=== PATIENT | female | born 1965 | race Caucasian/White ===

== ENCOUNTER 2017-08-08 09:07 | Emergency (ER) | payer MEDICARE, OTHER ==
[~2017-08-08] VITALS: Ht 172.7 cm; Wt 98.0 kg
[2017-08-08 09:11] VITALS: BP 198/96; PULSE 96; RESP 16; TEMP 98.5; O2SAT 99
--- NOTE | 2017-08-08 10:08 | PD ---
HPI Chief Complaint: Musculoskeletal Complaint Time Seen by Provider: 09:55 Travel History International Travel<30 days: No Contact w/Intl Traveler<30days: No Traveled to known affect area: No History of Present Illness HPI 52-year-old female with history of RA who recently relocated to the [facility] here with joint pain. She has not received her Enbrel since July for management of her RA. She is awaiting an appointment with a new business project manager. She does not have a primary doctor. She denies fever or chills. This is similar to her previous flares. she has pain in her left wrist , bilateral knees. pain is constant. no aggravating or alleviating factors. PFSH Past Medical History Arthritis: Yes (RA) Hypertension: Yes Tetanus Vaccination: Unknown Influenza Vaccination: No ?: Not Tubal Ligation: Yes Past Surgical History Appendectomy: Yes Social History Alcohol Use: No Tobacco Use: Yes (08/02 PPD) Substance Use: No Allergies-Medications (Allergen,Severity, Reaction): Coded Allergies: No Known Allergies (Unverified , 08/08/17) Reported Meds & Prescriptions Reported Meds & Active Scripts Active Ultram (Tramadol HCl) 50 Mg Tab 50 Mg PO Q6H PRN Prednisone 20 Mg Tab 40 Mg PO DAILY Take 40 mg (2 tablets) daily for 5 days Review of Systems Except as stated in HPI: all other systems reviewed are Neg General / Constitutional: No: Fever Eyes: No: Visual changes HENT: No: Headaches Cardiovascular: No: Chest Pain or Discomfort Respiratory: No: Shortness of Breath Gastrointestinal: No: Abdominal Pain Genitourinary: No: Dysuria Physical Exam Narrative GENERAL: alert female. nontoxic appearing SKIN: Warm and dry. no rash HEAD: Normocephalic. EYES: No scleral icterus. No injection or drainage. NECK: Supple, trachea midline. No JVD or lymphadenopathy. CARDIOVASCULAR: Regular rate and rhythm without murmurs, gallops, or rubs. RESPIRATORY: Breath sounds equal bilaterally. No accessory muscle use. GASTROINTESTINAL: Abdomen soft, non-tender, nondistended. MUSCULOSKELETAL: No cyanosis, or edema. tenderness & mild swelling over the dorsal aspect of the left wrist, bilateral anterior knees. BACK: Nontender without obvious deformity. No CVA tenderness. Data Data Last Documented VS Vital Signs Date Time Temp Pulse Resp B/P (MAP) Pulse Ox O2 Delivery O2 Flow Rate FiO2 08/08/17 09:11 98.5 96 16 198/96 (130) 99 Orders Orders Dexamethasone Inj (Decadron Inj) (08/08/17 10:15) Ketorolac Inj (Toradol Inj) (08/08/17 10:15) Ed Discharge Order (08/08/17 10:18) MDM Medical Decision Making Medical Screen Exam Complete: Yes Emergency Medical Condition: Yes Differential Diagnosis Rheumatoid arthritis, osteoarthritis, psoriatic arthritis Narrative Course 52-year-old female with history of RA who recently relocated to the [facility] here with joint pain. She has not received her Enbrel since July for management of her RA. She is awaiting an appointment with a new business project manager. She does not have a primary doctor. She denies fever or chills. This is similar to her previous flares. Patient was given a shot of Decadron and Toradol which improved her symptoms. She'll be referred to local business project manager and prescribed steroids and Ultram. Diagnosis Primary Impression: Rheumatoid arthritis Qualified Codes: M06.9 - Rheumatoid arthritis, unspecified Referrals: Tractor Trailer Operator ALLERGY, ASTHMA, ARTHRITIS & [place] ARTHRITIS & ALLERGY IN Tractor Trailer Operator Additional Instructions: Steroids as prescribed. Ultram as needed for pain. Call to make a follow-up an appointment with one of the listed business project manager. Return if he developed new or worsening symptoms. Scripts Tramadol (Ultram) 50 Mg Tab 50 MG PO Q6H Y for PAIN, #15 TAB 0 Refills Prov: Williams Wong MD 08/08/17 Prednisone (Prednisone) 20 Mg Tab 40 MG PO DAILY, #10 TAB 0 Refills Take 40 mg (2 tablets) daily for 5 days Prov: Zara Holley 08/08/17 Disposition: 01 DISCHARGE HOME Condition: Stable Zara Holley Aug 08, 2017 10:08
[2017-08-08] MEDS ORDERED: PRED20 PO (10:10)
[2017-08-08] MEDS ORDERED: TRAM50 PO (10:11)
[2017-08-08] MEDS ORDERED: KETOROLAC TROMETHAMINE 60 MG/2 ML (IM) VIAL IM ONE (10:15)
[2017-08-08] MEDS ORDERED: DEXAMETHASONE SOD PHOS 4 MG/ML VIAL IM ONE (10:15)
== END 2017-08-08 10:34 | disposition home or self-care (01) ==
LOC: PHEFT 09:07
DX: M06.9 Rheumatoid arthritis, unspecified (principal); I10 Essential (primary) hypertension; J45.909 Unspecified asthma, uncomplicated; F17.200 Nicotine dependence, unspecified, uncomplicated
CPT/HCPCS: 96372; 99284; J1100; J1885

== ENCOUNTER 2017-10-12 11:59 | Inpatient (IN) | payer MEDICARE, OTHER ==
[~2017-10-12] VITALS: Ht 172.7 cm; Wt 96.4 kg
[2017-10-12] VITALS (10 sets, daily range): BP systolic 138–196; BP diastolic 72–106; PULSE 72–79; RESP 16–20; TEMP 97–98.7; O2SAT 92–100
[~2017-10-12 11:59] MED LIST: PRED20 PO; TRAM50 PO
[2017-10-12] MEDS ORDERED: PANTOPRAZOLE INJ 80 MG in SODIUM CHLORIDE 0.9% INJ 100 ML IV SCH (12:13)
[2017-10-12] MEDS ORDERED: SODIUM CHLOR 0.9% 1000 ML INJ 1,000 ML IV SCH (12:13)
[2017-10-12] MEDS ORDERED: PANTOPRAZOLE INJ 80 MG in SODIUM CHLORIDE 0.9% INJ 35 ML IV ONE (12:13)
[2017-10-12] MEDS ORDERED: SODIUM CHLORIDE 0.9% FLUSH 10 ML FLUSH IVF PRN (12:15)
--- NOTE | 2017-10-12 12:27 | PD ---
HPI . Hematemesis Chief Complaint: GI Complaint Time Seen by Provider: 12:10 Travel History International Travel<30 days: No Contact w/Intl Traveler<30days: No Traveled to known affect area: No History of Present Illness HPI Patient presents complaining with a three-day history of hematemesis. She has vomited once each day. She has poor appetite. She has minimal epigastric discomfort. She has not noticed any change in her stools. She has been taking ibuprofen, 800 mg every 6 hours for the last week because of rheumatoid arthritis. She had been maintained on Embrel for her rheumatoid arthritis but has recently moved here and does not have a conservation technician appointment until December. She states that she has seen a primary care provider but that the primary care provider would not prescribe the Embrel. Therefore, she has been taking [id number] NSAIAs for her RA. The patient denies any previous problem with her GI tract. She is complaining with diffuse joint pain. She rates her joint pain at 10/10. PFSH Past Medical History Arthritis: Yes (RA) Hypertension: Yes Tubal Ligation: Yes Past Surgical History Appendectomy: Yes Social History Alcohol Use: No Tobacco Use: Yes (/2 PPD) Substance Use: No Allergies-Medications (Allergen,Severity, Reaction): Coded Allergies: No Known Allergies (Unverified , 10/12/17) Reported Meds & Prescriptions Reported Meds & Active Scripts Active Ultram (Tramadol HCl) 50 Mg Tab 50 Mg PO Q6H PRN Prednisone 20 Mg Tab 40 Mg PO DAILY Take 40 mg (2 tablets) daily for 5 days Review of Systems Except as stated in HPI: all other systems reviewed are Neg Gastrointestinal: Positive: Nausea, Vomiting, Abdominal Pain, Hematemesis, No: Diarrhea, Hematochezia Musculoskeletal: Positive: Arthralgias, Limited ROM Physical Exam Narrative GENERAL: Very anxious. SKIN: warm/dry. Normal color and turgor. HEAD: Normocephalic. Atraumatic. EYES: Pupils equal and round. No scleral icterus. No injection or drainage. ENT: No nasal bleeding or discharge. Mucous membranes pink and moist. NECK: Trachea midline. Full range of motion without pain.. CARDIOVASCULAR: Regular rate and rhythm. RESPIRATORY: No accessory muscle use. Clear to auscultation. Breath sounds equal bilaterally. GASTROINTESTINAL: Abdomen soft. Nontender. Bowel sounds present. Nondistended. RECTAL: Hard brown stool in the rectal vault. MUSCULOSKELETAL: No obvious deformities. NEUROLOGICAL: Awake and alert. No obvious cranial nerve deficits. Motor grossly within normal limits. Normal speech. PSYCHIATRIC: Appropriate mood and affect; insight and judgment normal. Data Data Last Documented VS Vital Signs Date Time Temp Pulse Resp B/P (MAP) Pulse Ox O2 Delivery O2 Flow Rate FiO2 10/12/17 12:06 98.1 79 18 196/106 (136) 100 Orders Orders Basic Metabolic Panel (Bmp) (10/12/17 12:13) Complete Blood Count With Diff (10/12/17 12:13) Prothrombin Time / Inr (Pt) (10/12/17 12:13) Act Partial Throm Time (Ptt) (10/12/17 12:13) Type And Screen (10/12/17 12:13) Ecg Monitoring (10/12/17 12:13) Iv Access Insert/Monitor (10/12/17 12:13) Ng Gastric Tube Insert/Monitor (10/12/17 12:13) Sodium Chlor 0.9% 1000 Ml Inj (Ns 1000 M (10/12/17 12:13) Sodium Chloride 0.9% Flush (Ns Flush) (10/12/17 12:15) Sodium Chloride 0.9... W/Pantoprazole In (10/12/17 12:13) Sodium Chloride 0.9... W/Pantoprazole In (10/12/17 12:13) Lorazepam Inj (Ativan Inj) (10/12/17 12:30) Morphine Inj (Morphine Inj) (10/12/17 12:30) Red Blood Cells (Rbc) (10/12/17 12:45) Blood Product Administration (10/12/17 12:45) Sodium Chlor 0.9% 250 Ml Inj (Ns 250 Ml (10/12/17 12:45) Pantoprazole Inj (Protonix Inj) (10/12/17 13:00) Admit Order (Ed Use Only) (10/12/17 ) Vital Signs (Adult) Q4H (10/12/17 13:42) Diet Npo (10/12/17 Lunch) Activity Oob With Assistance (10/12/17 13:42) Notify Dr: Other (10/12/17 13:42) Labs Laboratory Tests Test 10/12/17 12:24 White Blood Count 6.6 TH/MM3 Red Blood Count 3.52 MIL/MM3 Hemoglobin 6.7 GM/DL Hematocrit 22.4 % Mean Corpuscular Volume 63.6 FL Mean Corpuscular Hemoglobin 18.9 PG Mean Corpuscular Hemoglobin Concent 29.8 % Red Cell Distribution Width 18.3 % Platelet Count 406 TH/MM3 Mean Platelet Volume 8.1 FL Neutrophils (%) (Auto) 69.6 % Lymphocytes (%) (Auto) 16.4 % Monocytes (%) (Auto) 7.8 % Eosinophils (%) (Auto) 3.6 % Basophils (%) (Auto) 2.6 % Neutrophils # (Auto) 4.6 TH/MM3 Lymphocytes # (Auto) 1.1 TH/MM3 Monocytes # (Auto) 0.5 TH/MM3 Eosinophils # (Auto) 0.2 TH/MM3 Basophils # (Auto) 0.2 TH/MM3 CBC Comment AUTO DIFF Differential Comment AUTO DIFF CONFIRMED Target Cells 1+ Prothrombin Time 9.9 SEC Prothromb Time International Ratio 1.0 RATIO Activated Partial Thromboplast Time 24.1 SEC Blood Urea Nitrogen 9 MG/DL Creatinine 0.44 MG/DL Random Glucose 84 MG/DL Calcium Level 8.5 MG/DL Sodium Level 141 MEQ/L Potassium Level 4.0 MEQ/L Chloride Level 107 MEQ/L Carbon Dioxide Level 27.0 MEQ/L Anion Gap 7 MEQ/L Estimat Glomerular Filtration Rate 151 ML/MIN MDM Medical Decision Making Medical Screen Exam Complete: Yes Emergency Medical Condition: Yes Differential Diagnosis Differential diagnosis includes but is not limited to gastritis, peptic ulcer disease, coagulopathy, gastric cancer Narrative Course This patient presents with hematemesis for the last 3 days. She reports one episode daily. She appears hemodynamically stable at this time. The etiology of her hematemesis is likely secondary to gastritis secondary to use of NSAIAs. She will be placed on a Protonix drip. Routine labs are pending including a type and screen. I have asked for an NG tube. This patient is very anxious and is in significant pain related to her are a. Those symptoms are being treated with Ativan and morphine. CBC & BMP Diagram 10/12/17 12:24 Calcium Level 8.5 I have ordered type and cross 4 with 2 units to be given now. She has had very little bloody output from her NG tube. HemaPrompt Point of Care Internal Pos. & Neg. Controls: Passed Fecal Specimen Occult Blood: Positive Diagnosis Primary Impression: Hematemesis Qualified Codes: K92.0 - Hematemesis Additional Impressions: Anemia Qualified Codes: D64.9 - Anemia, unspecified Rheumatoid arthritis Qualified Codes: M06.9 - Rheumatoid arthritis, unspecified Admitting Information Admitting Physician Requests: Admit Condition: Stable Mireille Vargas MD Oct 12, 2017 12:27
[2017-10-12] MEDS ORDERED: MORPHINE SULFATE 4 MG/ML INJ IV ONE (12:30)
[2017-10-12] MEDS ORDERED: LORazepam 2 MG/ML VIAL IV PUSH SCH (12:30)
[2017-10-12 12:41] LABS: AUTOMATED NEUTROPHIL # 4.6 TH/MM3 (1.8-7.7); BASOPHIL # 0.2 TH/MM3 (0-0.2); BASOPHIL % 2.6 % (0.0-2.0); EOSINOPHIL # 0.2 TH/MM3 (0-0.4); EOSINOPHIL % 3.6 % (0.0-4.0); HEMATOCRIT 22.4 % (35.0-46.0); LYMPH % 16.4 % (9.0-44.0); LYMPHOCYTE # 1.1 TH/MM3 (1.0-4.8); MEAN CELL VOLUME 63.6 FL (80.0-100.0); MEAN CORPUSCULAR HEMOGLOBIN 18.9 PG (27.0-34.0); MEAN PLATELET VOLUME 8.1 FL (7.0-11.0); MONO % 7.8 % (0.0-8.0); MONOCYTE # 0.5 TH/MM3 (0-0.9); NEUT % 69.6 % (16.0-70.0); PLATELET COUNT 406 TH/MM3 (150-450); RED BLOOD COUNT 3.52 MIL/MM3 (4.00-5.30); RED CELL DISTRIBUTION WIDTH 18.3 % (11.6-17.2); WHITE BLOOD COUNT 6.6 TH/MM3 (4.0-11.0)
[2017-10-12 12:42] LABS: MEAN CORPUSCULAR HGB CONC 29.8 % (32.0-36.0)
[2017-10-12 12:43] LABS: HEMOGLOBIN 6.7 GM/DL (11.6-15.3)
[2017-10-12] MEDS ORDERED: SODIUM CHLOR 0.9% 250 ML INJ 250 ML IV ONE (12:45)
[2017-10-12 12:46] LABS: CALCIUM 8.5 MG/DL (8.5-10.1)
[2017-10-12 12:50] LABS: CREATININE 0.44 MG/DL (0.50-1.00)
[2017-10-12 13:01] LABS: TARGET CELLS 1+ (NORMAL)
[2017-10-12 13:20] LABS: PROTHROMBIN TIME - PATIENT 9.9 SEC (9.8-11.6)
[2017-10-12] MEDS: PANTOPRAZOLE INJ 80 MG in SODIUM CHLORIDE 0.9% INJ 100 ML IV SCH ×2 (13:40→21:17)
[2017-10-12] MEDS ORDERED: NALOXONE HCL 0.4 MG/ML AMP IV PUSH PRN (14:00)
[2017-10-12] MEDS ORDERED: ONDANSETRON HCL 4 MG/2 ML VIAL IVP PRN (14:00)
[2017-10-12] MEDS ORDERED: MORPHINE SULFATE 2 MG/ML INJ IV PUSH PRN (14:00)
[2017-10-12] MEDS ORDERED: SODIUM CHLORIDE 0.9% FLUSH 10 ML FLUSH IV FLUSH PRN (14:00)
[2017-10-12] MEDS: SODIUM CHLOR 0.9% 1000 ML INJ 1,000 ML IV SCH (14:00)
[2017-10-12] MEDS ORDERED: hydrALAZINE HCL 20 MG/ML VIAL IV PUSH PRN (15:15)
--- NOTE | 2017-10-12 15:16 | HHI.HP ---
[facility] Service [facility] Primary Care Physician Lucas Perales MD Admission Diagnosis GI bleed, anemia, RA Diagnoses: (1) Hematemesis Diagnosis: Principal (2) Anemia due to acute blood loss Diagnosis: Principal Chief Complaint: Vomiting of blood Travel History International Travel<30 Days: No Contact w/Intl Traveler <30 Da: No Traveled to Known Affected Are: No History of Present Illness This is a 52-year-old female with known history of hypertension, rheumatoid arthritis, osteoarthritis who recently moved to this area in August from [place]. And likely she did have a primary medical doctor as well as a technical spec to manage her care on a regular basis. However since she moved here she has been unable to receive her medication that she was taking previously. She was on Enbrel for her rheumatoid arthritis, and has not been able to take it since 07/19/17 because she moved to this area she does not have a technical spec prescribed medication. It was indicated that her previous technical spec will not refill the medication because she has moved to a new area and is in the process of obtaining a new technical spec which she has an appointment for in January. She was successful in getting a primary medical doctor but was only able to get her blood pressure medication refilled. Was not successful in getting the Enbrel prefilled. She has not had the medication she has been taking ibuprofen approximately 800 mg every 6 hours for chronic pain. Patient states that 3 days ago she started having episodes of vomiting of blood. She had 2 episodes 3 days ago of bright red blood with emesis, one episode yesterday, and one episode today. Because she was continued to have bloody vomit with right upper quadrant abdominal pain she came to emergency department for evaluation. Patient had laboratories performed which did show acute anemia with hemoglobin 6.7. NG tube was placed to empty gastric contents to eliminate further vomiting by ER physician. Patient has been started on Protonix. ER physician called hospitalist and recommended admission with GI consultation, blood transfusion. Patient denies any previous episodes of hematemesis. She denies any melena, however occult blood was performed emergency department which was positive. Review of Systems Gastrointestinal: COMPLAINS OF: Abdominal pain, Nausea, Vomiting Musculoskeletal: COMPLAINS OF: Joint pain Except as stated in HPI: all other systems reviewed are Neg Past Family Social History Past Medical History Rheumatoid arthritis Osteoarthritis Hypertension Past Surgical History Cervical ablation tubal ligation tonsillectomy Reported Medications Reported Meds & Active Scripts Active Ultram (Tramadol HCl) 50 Mg Tab 50 Mg PO Q6H PRN Prednisone 20 Mg Tab 40 Mg PO DAILY Take 40 mg (2 tablets) daily for 5 days Allergies: Coded Allergies: No Known Allergies (Unverified , 10/12/17) Family History Reviewed is significant for mother from aortic aneurysm, father from congestive heart failure, brother from cardiomyopathy Social History Patient continues smoke a quarter pack a cigarettes a day since she was 17 years old. Denies any alcohol use. Does use marijuana occasionally Physical Exam Vital Signs Vital Signs Date Time Temp Pulse Resp B/P (MAP) Pulse Ox O2 Delivery O2 Flow Rate FiO2 10/12/17 14:05 10/12/17 13:44 72 16 160/85 (110) 99 Room Air 10/12/17 12:06 98.1 79 18 196/106 (136) 100 Physical Exam GENERAL: Well-developed, well-nourished, in no acute distress. alert and orientated HEENT: Head is normocephalic without any lesions or masses noted. Facial features are symmetric. Eyes: Pupils equal round reactive to light. Extraocular muscles are intact. Conjunctivae were clear. Oropharyngeal: Pharynx without any erythema edema. Tongue is midline without deviation. Buccal mucosa is moist without any masses or lesions. NG tube in place NECK: Supple without any masses. Trachea midline no deviation. No JVD, no bruits are appreciated CARDIAC: Regular rhythm, regular rate. S1/S2 are heard. No murmurs gallops or rubs. LUNGS: Clear to auscultation bilaterally. No wheeze, rhonchi or rales. No use of accessory muscles on inspiration or expiration. ABDOMEN: Soft, mild tenderness noted in the epigastric region. Nondistended. Bowel sounds heard in all 4 quadrants. No organomegaly or masses. Negative rebound, negative guarding EXTREMITIES: No edema, pulses are equal bilaterally. No cyanosis or clubbing NEUROLOGY: Mood and affect appear appropriate. Cranial nerves II through XII grossly intact. Muscle strength 5/5 in upper and lower extremities bilaterally. Deep tendon reflexes are 2+ in upper and lower extremities bilaterally. Laboratory Laboratory Tests Test 10/12/17 12:24 White Blood Count 6.6 Red Blood Count 3.52 Hemoglobin 6.7 Hematocrit 22.4 Mean Corpuscular Volume 63.6 Mean Corpuscular Hemoglobin 18.9 Mean Corpuscular Hemoglobin Concent 29.8 Red Cell Distribution Width 18.3 Platelet Count 406 Mean Platelet Volume 8.1 Neutrophils (%) (Auto) 69.6 Lymphocytes (%) (Auto) 16.4 Monocytes (%) (Auto) 7.8 Eosinophils (%) (Auto) 3.6 Basophils (%) (Auto) 2.6 Neutrophils # (Auto) 4.6 Lymphocytes # (Auto) 1.1 Monocytes # (Auto) 0.5 Eosinophils # (Auto) 0.2 Basophils # (Auto) 0.2 CBC Comment AUTO DIFF Differential Comment AUTO DIFF CONFIRMED Target Cells 1+ Prothrombin Time 9.9 Prothromb Time International Ratio 1.0 Activated Partial Thromboplast Time 24.1 Blood Urea Nitrogen 9 Creatinine 0.44 Random Glucose 84 Calcium Level 8.5 Sodium Level 141 Potassium Level 4.0 Chloride Level 107 Carbon Dioxide Level 27.0 Anion Gap 7 Estimat Glomerular Filtration Rate 151 Result Diagram: 10/12/17 1224 10/12/17 1224 Caprini VTE Risk Assessment Caprini VTE Risk Assessment: Mod/High Risk (score >= 2) VTE Pharm Contraindication: Active bleeding Caprini Risk Assessment Model Point Value = 1 Point Value = 2 Point Value = 3 Point Value = 5 Age 41-60 Minor surgery BMI > 25 kg/m2 Swollen legs Varicose veins or History of unexplained or recurrent spontaneous Oral contraceptives or hormone replacement Sepsis (< 1 month) Serious lung disease, including pneumonia (< 1 month) Abnormal pulmonary function Acute myocardial infarction Congestive heart failure (< 1 month) History of inflammatory bowel disease Medical patient at bed rest Age 61-74 Arthroscopic surgery Major open surgery (> 45 min) Laparoscopic surgery (> 45 min) Malignancy Confined to bed (> 72 hours) Immobilizing plaster cast Central venous access Age >= 75 History of VTE Family history of VTE Factor V Leiden Prothrombin [id number] Lupus anticoagulant Anticardiolipin antibodies Elevated serum homocysteine Heparin-induced thrombocytopenia Other congenital or acquired thrombophilia Stroke (< 1 month) Elective arthroplasty Hip, pelvis, or leg fracture Acute spinal cord injury (< 1 month) Prophylaxis Regimen Total Risk Factor Score Risk Level Prophylaxis Regimen 0-1 Low Early ambulation 2 Moderate Order ONE of the following: *Sequential Compression Device (SCD) *Heparin 5000 units SQ BID 3-4 Higher Order ONE of the following medications: *Heparin 5000 units SQ TID *Enoxaparin/Lovenox 40 mg SQ daily (WT < 150 kg, CrCl > 30 mL/min) *Enoxaparin/Lovenox 30 mg SQ daily (WT < 150 kg, CrCl > 10-29 mL/min) *Enoxaparin/Lovenox 30 mg SQ BID (WT < 150 kg, CrCl > 30 mL/min) AND/OR *Sequential Compression Device (SCD) 5 or more Highest Order ONE of the following medications: *Heparin 5000 units SQ TID (Preferred with Epidurals) *Enoxaparin/Lovenox 40 mg SQ daily (WT < 150 kg, CrCl > 30 mL/min) *Enoxaparin/Lovenox 30 mg SQ daily (WT < 150 kg, CrCl > 10-29 mL/min) *Enoxaparin/Lovenox 30 mg SQ BID (WT < 150 kg, CrCl > 30 mL/min) AND *Sequential Compression Device (SCD) Assessment and Plan Assessment and Plan Hematemesis Patient started on Protonix IV Continue IV fluid Zofran for nausea or vomiting GI consulted for recommendations, patient will require endoscopy We'll keep patient nothing by mouth, NG tube placed by ER physician Anemia of acute blood loss with microcytosis Transfuse 2 units of packed red blood cells Continue monitor H&H every 6 hours Obtain anemia workup with iron studies, ferritin, folic acid, B12, retake count, haptoglobin Hypertension Vasotec, Apresoline as needed Rheumatoid arthritis Continue pain control DVT prevention sequential compression devices Avoid chemical prophylaxis secondary to acute blood GI bleed Physician Certification 2 Midnight Certification Type: Admission for Inpatient Services Order for Inpatient Services The services are ordered in accordance with Medicare regulations or non- Medicare payer requirements, as applicable. In the case of services not specified as inpatient-only, they are appropriately provided as inpatient services in accordance with the 2-midnight benchmark. Estimated LOS (days): 2 days is the estimated time the patient will need to remain in the hospital, assuming treatment plan goals are met and no additional complications. Post-Hospital Plan: Not yet determined Problem Qualifiers (1) Hematemesis: Qualified Codes: K92.0 - Hematemesis Oswald Bhakta Oct 12, 2017 15:16
[2017-10-12] MEDS: ENALAPRILAT 1.25 MG/ML VIAL IV PUSH PRN ×2 (15:51→23:41)
[2017-10-12] MEDS: ONDANSETRON HCL 4 MG/2 ML VIAL IV PUSH PRN (15:52)
[2017-10-12] MEDS: MORPHINE SULFATE 4 MG/ML INJ IV PUSH PRN ×3 (15:52→22:27)
[2017-10-12 16:20] LABS: HEMATOCRIT 22.1 % (35.0-46.0)
[2017-10-12 16:25] LABS: HEMOGLOBIN 6.5 GM/DL (11.6-15.3)
[2017-10-12 16:32] LABS: RETIC # 82.7 MIL/L (20.0-150.0); RETIC % 2.5 % (0.4-3.0)
[2017-10-12 17:06] LABS: % SATURATION IRON PROFILE 2.8 % (20-50); IRON (FE) 13 MCG/DL (50-170); TOTAL IRON BINDING CAPACITY 470 MCG/DL (250-450)
[2017-10-12 17:31] LABS: FERRITIN 11 NG/ML (8-252); FOLATE 8.7 NG/ML (3.1-17.5)
[2017-10-12] MEDS: SODIUM CHLORIDE 0.9% FLUSH 10 ML FLUSH IV FLUSH SCH (21:17)
[2017-10-13] MEDS: MORPHINE SULFATE 4 MG/ML INJ IV PUSH PRN ×7 (01:04→22:04)
[2017-10-13] MEDS: SODIUM CHLOR 0.9% 1000 ML INJ 1,000 ML IV SCH ×3 (01:07→20:00)
[2017-10-13 01:36] LABS: HEMATOCRIT 24.3 % (35.0-46.0); HEMOGLOBIN 7.7 GM/DL (11.6-15.3)
[2017-10-13 04:45] VITALS: BP 171/102; PULSE 75; RESP 20; TEMP 98.7; O2SAT 96
[2017-10-13 06:06] VITALS: BP 153/93; RESP 20
[2017-10-13 07:31] LABS: CHLORIDE 107 MEQ/L (98-107); SODIUM (NA) 140 MEQ/L (136-145)
[2017-10-13 07:36] LABS: ALBUMIN 2.7 GM/DL (3.4-5.0); BICARBONATE 24.6 MEQ/L (21.0-32.0); BLOOD UREA NITROGEN 8 MG/DL (7-18); CALCIUM 8.5 MG/DL (8.5-10.1); GLUCOSE,RANDOM 90 MG/DL (74-106)
[2017-10-13 07:39] LABS: ALT (GPT) 10 U/L (10-53); AST (GOT) 9 U/L (15-37); CREATININE 0.32 MG/DL (0.50-1.00); GLOMERULAR FILTRATION RATE 219 ML/MIN (>89)
[2017-10-13 07:41] LABS: TOTAL BILIRUBIN ADULT 0.6 MG/DL (0.2-1.0); TOTAL PROTEIN 6.5 GM/DL (6.4-8.2)
[2017-10-13 07:42] LABS: ALKALINE PHOSPHATASE 71 U/L (45-117)
[2017-10-13] MEDS: PANTOPRAZOLE INJ 80 MG in SODIUM CHLORIDE 0.9% INJ 100 ML IV SCH (07:45)
[2017-10-13] MEDS: SODIUM CHLORIDE 0.9% FLUSH 10 ML FLUSH IV FLUSH SCH ×2 (07:45→21:00)
[2017-10-13 07:46] LABS: AUTOMATED NEUTROPHIL # 6.9 TH/MM3 (1.8-7.7); BASOPHIL # 0.1 TH/MM3 (0-0.2); BASOPHIL % 0.7 % (0.0-2.0); EOSINOPHIL # 0.1 TH/MM3 (0-0.4); EOSINOPHIL % 1.2 % (0.0-4.0); HEMATOCRIT 26.8 % (35.0-46.0); HEMOGLOBIN 8.1 GM/DL (11.6-15.3); LYMPH % 9.5 % (9.0-44.0); LYMPHOCYTE # 0.8 TH/MM3 (1.0-4.8); MEAN CELL VOLUME 66.8 FL (80.0-100.0); MEAN CORPUSCULAR HEMOGLOBIN 20.2 PG (27.0-34.0); MEAN CORPUSCULAR HGB CONC 30.2 % (32.0-36.0); MONO % 6.8 % (0.0-8.0); MONOCYTE # 0.6 TH/MM3 (0-0.9); NEUT % 81.8 % (16.0-70.0); PLATELET COUNT 391 TH/MM3 (150-450); RED BLOOD COUNT 4.01 MIL/MM3 (4.00-5.30); RED CELL DISTRIBUTION WIDTH 20.9 % (11.6-17.2); WHITE BLOOD COUNT 8.5 TH/MM3 (4.0-11.0)
[2017-10-13 07:50] VITALS: BP 178/109; PULSE 83; RESP 20; TEMP 97.8; O2SAT 98
[2017-10-13] MEDS: ENALAPRILAT 1.25 MG/ML VIAL IV PUSH PRN ×2 (07:56→14:17)
[2017-10-13] MEDS: ONDANSETRON HCL 4 MG/2 ML VIAL IV PUSH PRN ×3 (07:56→22:03)
[2017-10-13] MEDS ORDERED: CYANOCOBALAMIN 1000 MCG/ML VIAL IM SCH (08:00)
[2017-10-13] MEDS: FERROUS SULFATE 325 MG (65 MG ELEMENTAL IRON) TAB PO SCH ×2 (09:00→21:10)
--- NOTE | 2017-10-13 09:29 | HHI.PR ---
Subjective Remarks Patient seen and examined today for follow-up on hematemesis, GI bleed, acute blood loss anemia. Hemoglobin is improved after transfusion. Patient still with NG tube in place with 150 cc output since 6 AM this morning which still appears to be dark coloration. Discussed with GI who plans to perform endoscopy today Objective Vitals Vital Signs Date Time Temp Pulse Resp B/P (MAP) Pulse Ox O2 Delivery O2 Flow Rate FiO2 10/13/17 06:06 20 153/93 (113) 10/13/17 04:45 98.7 75 20 171/102 (125) 96 10/12/17 23:33 97.1 79 20 172/99 96 10/12/17 20:55 97.7 79 20 160/97 95 10/12/17 20:24 98.7 73 18 154/88 92 10/12/17 20:15 77 10/12/17 20:11 18 10/12/17 20:10 98.7 74 18 156/96 93 10/12/17 17:19 97.0 72 20 138/72 10/12/17 16:26 97.5 72 20 162/81 10/12/17 15:26 97.5 74 20 169/87 (114) 98 10/12/17 14:05 10/12/17 13:44 72 16 160/85 (110) 99 Room Air 10/12/17 12:06 98.1 79 18 196/106 (136) 100 I/O 10/12/17 10/12/17 10/12/17 10/13/17 10/13/17 10/13/17 07:00 15:00 23:00 07:00 15:00 23:00 Intake Total 1860 ml 3800 ml Output Total 800 ml 1000 ml Balance 1060 ml 2800 ml Intake IV Total 1410 ml 2600 ml Packed Cells 400 ml 1100 ml Blood Product IV Normal Saline Flush 50 ml 100 ml Output Urine Total 800 ml 800 ml Gastric Drainage Total 200 ml # Voids 1 # Bowel Movements 0 Result Diagram: 10/13/17 0710 10/13/17 0710 Objective Remarks GENERAL: Well-developed, well-nourished, in no acute distress. alert and orientated HEENT: Head is normocephalic without any lesions or masses noted. Facial features are symmetric. Eyes: Extraocular muscles are intact. Conjunctivae were clear. NG tube in place NECK: Supple without any masses. Trachea midline no deviation. No JVD, CARDIAC: Regular rhythm, regular rate. S1/S2 are heard. No murmurs gallops or rubs. LUNGS: Clear to auscultation bilaterally. No wheeze, rhonchi or rales. No use of accessory muscles on inspiration or expiration. ABDOMEN: Soft, mild tenderness noted in the epigastric region. Nondistended. Bowel sounds heard in all 4 quadrants. No organomegaly or masses. Negative rebound, negative guarding EXTREMITIES: No edema, pulses are equal bilaterally. No cyanosis or clubbing NEUROLOGY: Mood and affect appear appropriate. Cranial nerves II through XII grossly intact. Moving all extremities, speech is clear Urinary Catheter: No Vascular Central Line Catheter: No A/P Assessment and Plan Hematemesis Continue Protonix IV Continue IV fluid Zofran for nausea or vomiting GI consulted for recommendations, Plan for endoscopy today We'll keep patient nothing by mouth, Continue NG tube at the present time secondary to increased gastric foot with dark coloration Anemia of acute blood loss with microcytosis Transfuse 2 units of packed red blood cells Continue monitor H&H every 6 hours Laboratory studies indicating B12 and iron deficiency Will start B12, iron replacement, Hypertension Vasotec, Apresoline as needed Rheumatoid arthritis Continue pain control DVT prevention sequential compression devices Avoid chemical prophylaxis secondary to acute blood GI bleed Oswald Bhakta Oct 13, 2017 09:29
[2017-10-13 09:46] LABS: KERATOCYTES OCC (NORMAL); OVALOCYTES 1+ (NORMAL)
[2017-10-13 09:47] LABS: ROULEAUX PRESENT (NORMAL)
[2017-10-13 11:46] LABS: HEMATOCRIT 26.8 % (35.0-46.0); HEMOGLOBIN 7.8 GM/DL (11.6-15.3)
[2017-10-13 11:50] VITALS: BP 171/83; PULSE 87; RESP 20; TEMP 97.4; O2SAT 98
[2017-10-13 15:00] VITALS: BP 169/89; PULSE 87; RESP 20; TEMP 97.9; O2SAT 96
[2017-10-13] MEDS ORDERED: METOPROLOL TARTRATE 5 MG/5 ML VIAL ONE (18:00)
[2017-10-13] MEDS ORDERED: EPINEPHrine HCL (1:10,000) 1 MG/10 ML SYRINGE OTHER ONE (18:07)
[2017-10-13] MEDS ORDERED: SODIUM CHLOR 0.9% 250 ML INJ 250 ML IV ONE (18:15)
--- NOTE | 2017-10-13 18:29 | PD.CONS ---
HPI History of Present Illness This is a 52 year old female who is known to have rheumatoid arthritis. She has been taking megadoses of [id number] ibuprofen for the last several days. She was admitted with history of hematemesis. Workup in the hospital showed presence of severe anemia requiring blood transfusion. She denied any history of melena or hematochezia. She also reports no history of abdominal pain heartburn dysphagia change in bowel habits anorexia or weight loss. Since admission to the hospital patient has had no recurrent GI bleeding PFSH Past Medical History Rheumatoid arthritis Osteoarthritis Hypertension Past Surgical History Cervical ablation tubal ligation tonsillectomy Coded Allergies: No Known Allergies (Unverified , 10/12/17) Medications Nursing MAR reviewed Family History Reviewed is significant for mother from aortic aneurysm, father from congestive heart failure, brother from cardiomyopathy Social History Patient continues smoke a quarter pack a cigarettes a day since she was 17 years old. Denies any alcohol use. Does use marijuana occasionally Review of Systems Gastrointestinal: COMPLAINS OF: Nausea, Vomiting, Hematemesis, DENIES: Abdominal pain, Black stools, Bloody stools, Constipation, Diarrhea, Difficulty Swallowing, Anorexia, Odynophagia, Swelling of Abdomen, Heartburn GI Exam Vitals I&O Vital Signs Date Time Temp Pulse Resp B/P (MAP) Pulse Ox O2 Delivery O2 Flow Rate FiO2 10/13/17 11:50 97.4 87 20 171/83 (112) 98 10/13/17 07:50 97.8 83 20 178/109 (132) 98 10/13/17 06:06 20 153/93 (113) 10/13/17 04:45 98.7 75 20 171/102 (125) 96 10/12/17 23:33 97.1 79 20 172/99 96 10/12/17 20:55 97.7 79 20 160/97 95 10/12/17 20:24 98.7 73 18 154/88 92 10/12/17 20:15 77 10/12/17 20:11 18 10/12/17 20:10 98.7 74 18 156/96 93 I/O 10/12/17 10/12/17 10/12/17 10/13/17 10/13/17 10/13/17 07:00 15:00 23:00 07:00 15:00 23:00 Intake Total 1860 ml 3800 ml 500 ml Output Total 800 ml 1000 ml 350 ml Balance 1060 ml 2800 ml 150 ml Intake IV Total 1410 ml 2600 ml Packed Cells 400 ml 1100 ml Blood Product IV Normal Saline Flush 50 ml 100 ml Other 500 ml Output Urine Total 800 ml 800 ml Gastric Drainage Total 200 ml 350 ml # Voids 1 # Bowel Movements 0 Laboratory Test 10/13/17 01:20 10/13/17 07:10 10/13/17 11:30 Hemoglobin 7.7 GM/DL 8.1 GM/DL 7.8 GM/DL Hematocrit 24.3 % 26.8 % 26.8 % White Blood Count 8.5 TH/MM3 Red Blood Count 4.01 MIL/MM3 Mean Corpuscular Volume 66.8 FL Mean Corpuscular Hemoglobin 20.2 PG Mean Corpuscular Hemoglobin Concent 30.2 % Red Cell Distribution Width 20.9 % Platelet Count 391 TH/MM3 Mean Platelet Volume 8.0 FL Neutrophils (%) (Auto) 81.8 % Lymphocytes (%) (Auto) 9.5 % Monocytes (%) (Auto) 6.8 % Eosinophils (%) (Auto) 1.2 % Basophils (%) (Auto) 0.7 % Neutrophils # (Auto) 6.9 TH/MM3 Lymphocytes # (Auto) 0.8 TH/MM3 Monocytes # (Auto) 0.6 TH/MM3 Eosinophils # (Auto) 0.1 TH/MM3 Basophils # (Auto) 0.1 TH/MM3 CBC Comment AUTO DIFF Differential Comment AUTO DIFF CONFIRMED Platelet Estimate NORMAL Platelet Morphology Comment NORMAL Ovalocytes 1+ Rouleau PRESENT Keratocytes OCC Blood Urea Nitrogen 8 MG/DL Creatinine 0.32 MG/DL Random Glucose 90 MG/DL Total Protein 6.5 GM/DL Albumin 2.7 GM/DL Calcium Level 8.5 MG/DL Alkaline Phosphatase 71 U/L Aspartate Amino Transf (AST/SGOT) 9 U/L Alanine Aminotransferase (ALT/SGPT) 10 U/L Total Bilirubin 0.6 MG/DL Sodium Level 140 MEQ/L Potassium Level 3.7 MEQ/L Chloride Level 107 MEQ/L Carbon Dioxide Level 24.6 MEQ/L Anion Gap 8 MEQ/L Estimat Glomerular Filtration Rate 219 ML/MIN Physical Examination HEENT: Pupils round and reactive to light; normocephalic; atraumatic; no jaundice. Throat is clear. NECK: Neck is supple, no JVD, no lymphadenopathy. CHEST: Chest is clear to auscultation and percussion. CARDIAC: Regular rate and rhythm. Ejection systolic murmur grade 2/6 at the left sternal border ABDOMEN: Soft, nondistended, nontender; no hepatosplenomegaly; bowel sounds are present in all four quadrants. EXTREMITIES: No clubbing, cyanosis, or edema. SKIN: Normal; no rash; no jaundice. ACCESSIBILITY LIFT TECHNICIAN: No focal deficits; alert and oriented times three. Assessment and Plan Plan 1. Acute severe upper GI bleeding likely related to NSAID gastropathy. 2. Urgent EGD for further evaluation and management 3. Monitor serial hemoglobin levels and continue supportive treatment including blood transfusions 4. IV Protonix 40 mg twice daily Phillip Falcon MD Oct 13, 2017 18:29
[2017-10-13] MEDS: PANTOPRAZOLE SODIUM 40 MG VIAL IV PUSH SCH (19:16)
[2017-10-13 20:00] VITALS: BP 159/87; PULSE 79; RESP 16; TEMP 98.5; O2SAT 95
[2017-10-14] VITALS (11 sets, daily range): BP systolic 140–188; BP diastolic 81–101; PULSE 68–85; RESP 16–20; TEMP 95.8–98.7; O2SAT 89–99
[2017-10-14 00:26] LABS: HEMATOCRIT 24.5 % (35.0-46.0); HEMOGLOBIN 7.9 GM/DL (11.6-15.3)
[2017-10-14] MEDS: MORPHINE SULFATE 4 MG/ML INJ IV PUSH PRN ×5 (03:10→16:08)
[2017-10-14] MEDS: SODIUM CHLOR 0.9% 1000 ML INJ 1,000 ML IV SCH ×2 (06:00→16:00)
[2017-10-14 06:08] LABS: AUTOMATED NEUTROPHIL # 5.4 TH/MM3 (1.8-7.7); BASOPHIL % 0.4 % (0.0-2.0); EOSINOPHIL # 0.1 TH/MM3 (0-0.4); EOSINOPHIL % 0.9 % (0.0-4.0); HEMOGLOBIN 7.5 GM/DL (11.6-15.3); LYMPH % 15.1 % (9.0-44.0); LYMPHOCYTE # 1.1 TH/MM3 (1.0-4.8); MEAN PLATELET VOLUME 8.2 FL (7.0-11.0); MONO % 8.2 % (0.0-8.0); MONOCYTE # 0.6 TH/MM3 (0-0.9); NEUT % 75.4 % (16.0-70.0); PLATELET COUNT 331 TH/MM3 (150-450); RED BLOOD COUNT 3.74 MIL/MM3 (4.00-5.30); RED CELL DISTRIBUTION WIDTH 21.2 % (11.6-17.2); WHITE BLOOD COUNT 7.2 TH/MM3 (4.0-11.0)
[2017-10-14 06:15] LABS: MEAN CORPUSCULAR HGB CONC 29.9 % (32.0-36.0)
[2017-10-14] MEDS: ONDANSETRON HCL 4 MG/2 ML VIAL IV PUSH PRN ×2 (07:12→13:02)
[2017-10-14] MEDS: PANTOPRAZOLE SODIUM 40 MG VIAL IV PUSH SCH (08:20)
[2017-10-14] MEDS: FERROUS SULFATE 325 MG (65 MG ELEMENTAL IRON) TAB PO SCH (08:20)
[2017-10-14] MEDS: ENALAPRILAT 1.25 MG/ML VIAL IV PUSH PRN (08:21)
[2017-10-14] MEDS: SODIUM CHLORIDE 0.9% FLUSH 10 ML FLUSH IV FLUSH SCH (09:00)
[2017-10-14] MEDS ORDERED: FERR325T20 PO (10:53)
[2017-10-14] MEDS ORDERED: PROT40TA PO (10:53)
--- NOTE | 2017-10-14 10:54 | HHI.DCPOC ---
Discharge Care Plan Diagnosis: (1) Anemia due to acute blood loss (2) Hematemesis Goals to Promote Your Health * To prevent worsening of your condition and complications * To maintain your health at the optimal level Directions to Meet Your Goals Take your medications as prescribed Follow your dietary instruction Follow activity as directed Keep your appointments as scheduled Take your immunizations and boosters as scheduled If your symptoms worsen call your PCP, if no PCP go to Urgent Care Center or Emergency Room Smoking is Dangerous to Your Health. Avoid second hand smoke Call the 24-hour hour crisis hotline for domestic abuse at Oswald Bhakta Oct 14, 2017 10:53
--- NOTE | 2017-10-14 11:06 | HHI.DS ---
Discharge Summary Admission Date Oct 12, 2017 at 13:45 Discharge Date: Oct 14, 2017 Admitting Diagnosis GI bleed, anemia, RA (1) Hematemesis ICD Code: K92.0 - Hematemesis Diagnosis: Principal Status: Acute (2) Anemia due to acute blood loss ICD Code: D62 - Acute posthemorrhagic anemia Diagnosis: Principal Procedures 10/13/17 EGD: Brief History - From Admission This is a 52-year-old female with known history of hypertension, rheumatoid arthritis, osteoarthritis who recently moved to this area in August from [place]. And likely she did have a primary medical doctor as well as a team driver to manage her care on a regular basis. However since she moved here she has been unable to receive her medication that she was taking previously. She was on Enbrel for her rheumatoid arthritis, and has not been able to take it since 07/19/17 because she moved to this area she does not have a team driver prescribed medication. It was indicated that her previous team driver will not refill the medication because she has moved to a new area and is in the process of obtaining a new team driver which she has an appointment for in January. She was successful in getting a primary medical doctor but was only able to get her blood pressure medication refilled. Was not successful in getting the Enbrel prefilled. She has not had the medication she has been taking ibuprofen approximately 800 mg every 6 hours for chronic pain. Patient states that 3 days ago she started having episodes of vomiting of blood. She had 2 episodes 3 days ago of bright red blood with emesis, one episode yesterday, and one episode today. Because she was continued to have bloody vomit with right upper quadrant abdominal pain she came to emergency department for evaluation. Patient had laboratories performed which did show acute anemia with hemoglobin 6.7. NG tube was placed to empty gastric contents to eliminate further vomiting by ER physician. Patient has been started on Protonix. ER physician called hospitalist and recommended admission with GI consultation, blood transfusion. Patient denies any previous episodes of hematemesis. She denies any melena, however occult blood was performed emergency department which was positive. CBC/BMP: 10/14/17 0502 10/13/17 0710 Significant Findings Laboratory Tests Test 10/12/17 12:24 10/12/17 14:20 10/13/17 01:20 10/13/17 07:10 Red Blood Count 3.52 MIL/MM3 (4.00-5.30) Hemoglobin 6.7 GM/DL (11.6-15.3) 6.5 GM/DL (11.6-15.3) 7.7 GM/DL (11.6-15.3) 8.1 GM/DL (11.6-15.3) Hematocrit 22.4 % (35.0-46.0) 22.1 % (35.0-46.0) 24.3 % (35.0-46.0) 26.8 % (35.0-46.0) Mean Corpuscular Volume 63.6 FL (80.0-100.0) 66.8 FL (80.0-100.0) Mean Corpuscular Hemoglobin 18.9 PG (27.0-34.0) 20.2 PG (27.0-34.0) Mean Corpuscular Hemoglobin Concent 29.8 % (32.0-36.0) 30.2 % (32.0-36.0) Red Cell Distribution Width 18.3 % (11.6-17.2) 20.9 % (11.6-17.2) Basophils (%) (Auto) 2.6 % (0.0-2.0) Target Cells 1+ (NORMAL) Haptoglobin 345 MG/DL (30-200) Activated Partial Thromboplast Time 24.1 SEC (24.3-30.1) Creatinine 0.44 MG/DL (0.50-1.00) 0.32 MG/DL (0.50-1.00) Iron Level 13 MCG/DL (50-170) Total Iron Binding Capacity 470 MCG/DL (250-450) Percent Iron Saturation 2.8 % (20-50) Lactate Dehydrogenase 273 U/L (84-246) Vitamin B12 Level 154 PG/ML (193-986) Neutrophils (%) (Auto) 81.8 % (16.0-70.0) Lymphocytes # (Auto) 0.8 TH/MM3 (1.0-4.8) Ovalocytes 1+ (NORMAL) Rouleau PRESENT (NORMAL) Keratocytes OCC (NORMAL) Albumin 2.7 GM/DL (3.4-5.0) Aspartate Amino Transf (AST/SGOT) 9 U/L (15-37) Test 10/13/17 11:30 10/13/17 19:55 10/14/17 00:15 10/14/17 05:02 Hemoglobin 7.8 GM/DL (11.6-15.3) 8.0 GM/DL (11.6-15.3) 7.9 GM/DL (11.6-15.3) 7.5 GM/DL (11.6-15.3) Hematocrit 26.8 % (35.0-46.0) 25.0 % (35.0-46.0) 24.5 % (35.0-46.0) 25.0 % (35.0-46.0) Red Blood Count 3.74 MIL/MM3 (4.00-5.30) Mean Corpuscular Volume 67.0 FL (80.0-100.0) Mean Corpuscular Hemoglobin 20.0 PG (27.0-34.0) Mean Corpuscular Hemoglobin Concent 29.9 % (32.0-36.0) Red Cell Distribution Width 21.2 % (11.6-17.2) Neutrophils (%) (Auto) 75.4 % (16.0-70.0) Monocytes (%) (Auto) 8.2 % (0.0-8.0) PE at Discharge GENERAL: Well-developed, well-nourished, in no acute distress. alert and orientated HEENT: Head is normocephalic without any lesions or masses noted. Facial features are symmetric. Eyes: Extraocular muscles are intact. Conjunctivae were clear. NG tube in place NECK: Supple without any masses. Trachea midline no deviation. No JVD, CARDIAC: Regular rhythm, regular rate. S1/S2 are heard. No murmurs gallops or rubs. LUNGS: Clear to auscultation bilaterally. No wheeze, rhonchi or rales. No use of accessory muscles on inspiration or expiration. ABDOMEN: Soft, mild tenderness noted in the epigastric region. Nondistended. Bowel sounds heard in all 4 quadrants. No organomegaly or masses. Negative rebound, negative guarding EXTREMITIES: No edema, pulses are equal bilaterally. No cyanosis or clubbing NEUROLOGY: Mood and affect appear appropriate. Cranial nerves II through XII grossly intact. Moving all extremities, speech is clear Hospital Course Is a 52-year-old female originally presented to hospital because a 3 day history of hematemesis. Patient was found to have severe acute blood loss anemia secondary to hematemesis. Patient has history of using ibuprofen 800 mg every 6 hours to treat her rheumatoid arthritis. Patient does have rheumatoid arthritis and chronic pain. She does have a team driver in [facility], however has not been able to get authorization for her Enbrel so she has been using more NSAIDs for management. Because of that she has developed significant gastritis, GI bleed with hematemesis. GI was consulted who made recommendations. Patient did undergo EGD with injection of epinephrine and clipping of active bleeding site. Patient required transfusion of 3 units of packed red blood cells to achieve hemostasis. Further laboratory studies also indicate B12 and iron deficiency. Prescriptions and replacement therapy with iron as well as B12 have been started. Counseled patient extensively on her pain needs. Patient states that she plans to go back to her original primary medical doctor as well as team driver for prescriptions. Patient clinically stable at this time. Hemoglobin has remained stable. Plan to discharge patient home after transfusion complete. Pt Condition on Discharge: Stable Discharge Disposition: Discharge Home Discharge Time: > 30 minutes Discharge Instructions DIET: Follow Instructions for: As Tolerated, No Restrictions Activities you can perform: Regular-No Restrictions Follow up Referrals: Gastroenterology - 2 Weeks with Phillip Falcon MD PCP Follow-up - 1 Week New Medications: Pantoprazole (Protonix) 40 Mg Tab 40 MG PO BID for Ulcer Prevention, #30 TAB 0 Refills Ferrous Sulfate (Ferosul) 325 Mg (65 Mg Iron) Tablet 325 MG PO BID for anemia for 30 Days, TAB Continued Medications: Tramadol (Ultram) 50 Mg Tab 50 MG PO Q6H PRN for PAIN, #15 TAB 0 Refills Discontinued Medications: Prednisone (Prednisone) 20 Mg Tab 40 MG PO DAILY, #10 TAB 0 Refills Take 40 mg (2 tablets) daily for 5 days Oswald Bhakta Oct 14, 2017 11:06
--- NOTE | 2017-10-14 11:09 | EKG ---
Date Performed: 10/13/2017 Time Performed: 17:04:24 PTAGE: 52 years EKG: Sinus rhythm NORMAL ECG NO PREVIOUS TRACING DOCTOR: Scott Sanchez Interpretating Date/Time 10/14/2017 11:07:18
[2017-10-14 15:28] LABS: HEMATOCRIT 27.8 % (35.0-46.0); HEMOGLOBIN 8.7 GM/DL (11.6-15.3)
[2017-10-14] MEDS ORDERED: HYDR-3366 PO (15:30)
== END 2017-10-14 16:49 | disposition home or self-care (01) | DRG 378 ==
LOC: PHED 11:59 → PHEDA 13:45 → PH3B 14:31
PROVIDERS: ADMIT Hospitalist; ATTEND Hospitalist
PROC: 30233N1 Transfusion of Nonautologous Red Blood Cells into Peripheral Vein, Percutaneous Approach (ICD-10-PCS; principal; 2017-10-12)
PROC: 0W3P8ZZ Control Bleeding in Gastrointestinal Tract, Via Natural or Artificial Opening Endoscopic (ICD-10-PCS; 2017-10-13)
DX: K29.61 Other gastritis with bleeding (principal); T39.395A Adverse effect of other nonsteroidal anti-inflammatory drugs [NSAID], initial encounter; D62 Acute posthemorrhagic anemia; I10 Essential (primary) hypertension; K22.6 Gastro-esophageal laceration-hemorrhage syndrome; R63.0 Anorexia; M06.9 Rheumatoid arthritis, unspecified; F17.210 Nicotine dependence, cigarettes, uncomplicated; Y92.9 Unspecified place or not applicable; F12.90 Cannabis use, unspecified, uncomplicated; M19.90 Unspecified osteoarthritis, unspecified site; E61.1 Iron deficiency; E53.8 Deficiency of other specified B group vitamins; K31.9 Disease of stomach and duodenum, unspecified
CPT/HCPCS: 36430; 43753; 80048; 80053; 82607; 82728; 82746; 83010; 83540; 83550; 83615; 85014; 85018; 85025; 85044; 85610; 85730; 86850; 86900; 86901; 86920; 93005; 96361; 96374; 96375; C9113; J0360; J2060; J2270; J2405; J3420; J7030; J7050; P9016